=== PATIENT | male | born 1960 | race Caucasian/White ===

== ENCOUNTER 2020-05-17 08:00 | Emergency (ER) | payer OTHER, SELFPAY ==
[2020-05-17 08:21] VITALS: BP 131/84; PULSE 106; RESP 16; TEMP 36; O2SAT 98
[2020-05-17] MEDS: TETANUS,DIPHTHERIA,AC PERTUSSIS ADULT (0.5 ML) BOOSTRIX IM (08:34)
--- NOTE | 2020-05-17 08:34 | ED.SKABFB ---
HPI - Skin/Abscess/Foreign Bdy General Chief complaint: Extremity Injury, Upper Stated complaint: Right index finger Time Seen by Provider: 05/17/20 08:18 History of Present Illness HPI narrative: 59-year-old male presents to the [facility] with a complaints of infection to the PIP joint right index finger dorsal aspect. Patient states that about 2 weeks ago he cut it while working on his daughter's car. The last 2 days has become red and swollen. Has full ROM of the finger at PIP and DIP joint with sensation intact. Cap refill under 2 sec. States that Years ago had a staph skin infection in his leg. Unknown tDap Related Data Allergies Allergy/AdvReac Type Severity Reaction Status Date / Time No Known Drug Allergies Allergy Mild Verified 05/25/17 10:42 Review of Systems Review of Systems: Narrative: CONSTITUTIONAL: Denies fever, chills, or sweats. CARDIOVASCULAR: Denies chest pain, palpitations, or edema. RESPIRATORY: Denies cough or dyspnea. GASTROINTESTINAL: Denies abdominal pain, nausea, vomiting, or diarrhea. GENITOURINARY: Denies dysuria or hematuria. SKIN: Denies rash or itching. redness and swelling dorsal PIP right index finger. MUSCULOSKELETAL: Denies back pain or myalgia. NEUROLOGIC: Denies headache, numbness, or weakness. PSYCHIATRIC: Denies anxiety or depression. All other systems reviewed are negative, except as documented in HPI. PMFSH Social History Social History Gender identity (if verbalized by the patient): Male Comments At the time of my signature, I reviewed and agree with the nursing past medical, surgical, social, and family history. There is no relevant family history pertinent to the patient complaint. Exam Narrative: Exam Narrative: GENERAL: This is a well-nourished, well-developed patient, in no apparent distress. HEAD: normocephalic, atraumatic. EYES: PERRL. Sclera clear/white. EARS: External ears normal. CARDIOVASCULAR: Regular rate and rhythm without murmurs, gallops, or rubs. RESPIRATORY: Clear to auscultation. Breath sounds equal bilaterally. No wheezes, rales, or rhonchi. GASTROINTESTINAL: Abdomen soft, non-tender. SKIN: warm, intact. no suspicious rash, good texture and turgor. NEURO: awake, alert, and oriented to person, place and time. There were no obvious focal neurologic abnormalities. EXTREMITIES: right index PIP dorsal aspect tenderness and swelling BACK: Nontender without deformity. No CVA tenderness. Extrem: Hand/finger images: 1. red and swollen, Fluctuant center with scab on center. Full ROM with Sensation intact. Cap refill distal to injury under 2 sec. Course Vital Signs Vital signs: Vital Signs Temperature 96.8 F L 05/17/20 08:21 Pulse Rate 106 H 05/17/20 08:21 Respiratory Rate 16 05/17/20 08:21 Blood Pressure 131/84 05/17/20 08:21 Pulse Oximetry 98 05/17/20 08:21 Temperature 96.8 F L 05/17/20 08:21 Pulse Rate 106 H 05/17/20 08:21 Respiratory Rate 16 05/17/20 08:21 Blood Pressure 131/84 05/17/20 08:21 Pulse Oximetry 98 05/17/20 08:21 reviewed. Procedures Abscess I/D hand: Date of Incision: 05/17/20 Time of Incision: 08:25 Side (if applicable): right Technique: needle aspiration Amount of fluid expressed (mL): 0.5 I&D Results: Pus and Blood Complications: pain Abcess I&D Additional Comments: Area cleaned with 3 swabs of Betadine, procedure explained to patient, patient verbalized understanding. Needle aspiration done to center fluctuant area with small amount of yellow-green pus expressed. Patient has full range of motion of PIP joint right index finger. Sensation intact distal. Capillary refill under 2 seconds MDM - Skin/Abscess/Foreign Bdy MDM Narrative Medical decision making narrative: Discharge instructions reviewed with patient, as well as provided in writing per nursing staff. The instructions also includ
== END 2020-05-17 08:42 | disposition home or self-care (01) ==
PROVIDERS: Emergency Provider Nurse Practitioner
DX: L02.511 Cutaneous abscess of right hand (principal); Z23 Encounter for immunization; I10 Essential (primary) hypertension; E11.9 Type 2 diabetes mellitus without complications
CPT/HCPCS: 26010; 87070; 87075; 87147; 87186; 87205; 90471; 90715; 99213; G0463